=== PATIENT | female | born 1940 | race Caucasian/White ===

== ENCOUNTER 2019-02-05 12:00 | Emergency (ER) | payer OTHER, MEDICARE ==
[~2019-02-05] VITALS: Ht 157.5 cm; Wt 53.6 kg
[~2019-02-05 12:00] MED LIST: OXYC-145 PO
--- NOTE | 2019-02-05 12:44 | NUR ---
C/O NECK PAIN, PLACED IN A C-COLLAR UNTIL WE CAN GET SOME FILMS OF HER NECK PER MD
[2019-02-05 13:35] LABS: BASOPHILS % (AUTO) 0.6 % (0-1); EOSINOPHILS # (AUTO) 0.1 X10'3 (0-0.9); EOSINOPHILS % (AUTO) 2.3 % (0-6); HEMOGLOBIN 13.8 g/dl (12.0-16.0); LYMPHOCYTES % (AUTO) 17.5 % (21-51); MEAN CORPUSCULAR HEMOGLOBIN 33.2 PG (27.0-31.0); MEAN CORPUSCULAR HGB CONC 33.7 g/dL (33.0-36.5); MEAN CORPUSCULAR VOLUME 98.7 FL (78-98); MEAN PLATELET VOLUME 9.4 FL (7.4-10.4); MONOCYTES # (AUTO) 0.8 X10'3 (0-0.9); MONOCYTES % (AUTO) 13.7 % (2-12); NEUTROPHILS # (AUTO) 3.9 X10'3 (1.8-7.7); NEUTROPHILS % (AUTO) 65.9 % (42-75); PLATELET COUNT 163 X10'3 (140-440); RED BLOOD COUNT 4.15 X10'6 (4.20-5.60); RED CELL DISTRIBUTION WIDTH 13.3 % (11.5-14.5)
[2019-02-05 13:48] LABS: PARTIAL THROMBOPLASTIN TIME 27 SECONDS (22-32)
[2019-02-05 13:49] LABS: ALANINE AMINOTRANSFERASE 23 U/L (12-78); ALBUMIN 3.7 G/DL (3.4-5.0); ALBUMIN/GLOBULIN RATIO 1.2 (1.1-1.5); ALKALINE PHOSPHATASE 56 IU/L (46-116); ANION GAP 5 (8-16); ASPARTATE AMINO TRANSFERASE 18 U/L (10-37); BILIRUBIN,TOTAL 0.3 MG/DL (0.1-1.0); BLOOD UREA NITROGEN 20 MG/DL (7-18); BUN/CREATININE RATIO 23.5 (6.6-38.0); CALCIUM 8.4 MG/DL (8.5-10.1); CHLORIDE 104 MMOL/L (99-107); CREATININE 0.85 MG/DL (0.40-0.90); GLUCOSE 86 MG/DL (70-104); SODIUM 139 MMOL/L (135-145); TOTAL CARBON DIOXIDE 30.1 MMOL/L (24-32); TOTAL PROTEIN 6.8 G/DL (6.4-8.2); eGFR 65 ML/MIN
[2019-02-05 15:18] VITALS: BP 159/65
== END 2019-02-05 15:30 | disposition home or self-care (01) ==
LOC: ER 12:00
DX: M54.2 Cervicalgia (principal); M25.512 Pain in left shoulder; Z88.6 Allergy status to analgesic agent; Z88.5 Allergy status to narcotic agent; Z88.0 Allergy status to penicillin; V49.88XA Car occupant (driver) (passenger) injured in other specified transport accidents, initial encounter; Y93.89 Activity, other specified; Y92.413 State road as the place of occurrence of the external cause; Y99.9 Unspecified external cause status
CPT/HCPCS: 36415; 71045; 72040; 80053; 84484; 85025; 85610; 85730; 93005; 99284

== ENCOUNTER 2024-11-14 15:17 | Emergency (ER) | payer MEDICARE, OTHER ==
[~2024-11-14] VITALS: Ht 157.5 cm; Wt 50.7 kg
[2024-11-14 15:36] VITALS: BP 159/52; PULSE 64; RESP 17; O2SAT 97
[2024-11-14] MEDS: LIDOcaine 1% 30ml preserv. free vial SQ STA (16:19)
[2024-11-14] MEDS ORDERED: CEPH-585 PO (16:30)
== END 2024-11-14 16:39 | disposition home or self-care (01) ==
LOC: ER 15:18
DX: L03.116 Cellulitis of left lower limb (principal); Z88.0 Allergy status to penicillin; Z88.5 Allergy status to narcotic agent
CPT/HCPCS: 10060; 99283; A6402; Z7610; A6449